=== PATIENT | female | born 1995 | race Caucasian/White ===

== ENCOUNTER 2017-02-22 10:38 | Emergency (ER) | payer MEDICAID, OTHER ==
[2017-02-22 11:37] LABS: RAPID STREP SCREEN REAGENT QC YELLOW (YELLOW)
[2017-02-22] MEDS ORDERED: cefTRIAXone 1 GM in SODIUM CHLORIDE 0.9% MINIBAG 100 ML IV STA (11:41)
[2017-02-22] MEDS ORDERED: DEXAMETHASONE 10 MG/ML VIAL PO STA (11:41)
[2017-02-22] MEDS ORDERED: CLINDAMYCIN 600 MG/50 ML 50 ML IV ONE ×2 (11:45→11:50)
[2017-02-22] MEDS ORDERED: CHERRY SYRUP 10 ML UDC PO ONE (11:50)
[2017-02-22] MEDS ORDERED: DEXAMETHASONE 10 MG/ML VIAL ONE (11:50)
[2017-02-22] MEDS: SODIUM CHLORIDE 0.9% 2,000 ML IV ONE ×2 (11:51→13:27)
[2017-02-22] MEDS ORDERED: ACETAMINOPHEN 1,000 MG/100 ML 100 ML IV ONE (11:58)
[2017-02-22] MEDS ORDERED: ACETAMINOPHEN 1,000 MG/100 ML 100 ML IV STA (11:58)
--- NOTE | 2017-02-22 14:42 | ED Physician Documentation ---
History of Present Illness - Stated complaint Stated Complaint: THROAT PX,SWELLING - Chief complaint Chief Complaint: Heent - Additonal information Additional information: hx from pt 2nd trimester preg 21 f to ER with sore throat and swelling on L side cant swallow no preg concerns, feeling baby move Review of Systems Constitutional: denies: Fever Throat: reports: Sore throat Respiratory: denies: Cough GI: denies: Abdominal Pain : reports: Now EGA PD PAST MEDICAL HISTORY - Past Medical History Past Medical History: Yes Respiratory: Asthma Musculoskeletal: Chronic back pain - Present Medications Home Medications: Ambulatory Orders Medication Instructions Recorded Confirmed Clindamycin [Cleocin] 300 mg PO Q6H 7 Days 02/22/17 - Allergies Allergies/Adverse Reactions: Allergies Allergy/AdvReac Type Severity Reaction Status Date / Time amoxicillin [Amoxicillin] Allergy Severe anaphylaxis Verified 02/22/17 10:51 peanut Allergy Severe anaphylaxis Verified 02/22/17 10:51 - Social History Does the pt smoke?: No Smoking Status: Never smoker Does the pt drink ETOH?: No Does the pt have substance abuse?: No PD ED PE NORMAL - Vitals Vital signs reviewed: Yes - HEENT HEENT: Moist mucous membranes. 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 no trismus, mod swellign and deviation, no clear fluctuant area to access for drainage) - Cardiac Cardiac: RRR - Respiratory Respiratory: No respiratory distress, Clear bilaterally - Derm Derm: Normal color Results - Vitals Vitals: Vital Signs - 24 hr 02/22/17 02/22/17 02/22/17 10:48 13:29 14:53 Temperature 37.2 C 37.6 C H Heart Rate 125 H 117 H 122 H Respiratory 16 22 18 Rate Blood Pressure 133/88 H 109/47 L 115/57 L O2 Saturation 97 99 115 H Oxygen O2 Source Room air - Labs Labs: Laboratory Tests 02/22/17 10:57 Group A Strep Rapid Negative PD MEDICAL DECISION MAKING - ED course ED course: txed with IV NS 2 L, single dose of decadron (safe after 1st trimester) and clinda 2/2 anaphylaxis to penicillins which is Cat B pt improved and tolerating PO now, feels better, nbut HR still 120, will have her return for a recheck tomororow Departure - Departure Disposition: 01 Home, Self Care Clinical Impression: Peritonsillar abscess Condition: Good Instructions: ED Peritonsillar Abscess Follow-Up: Mimi Forde LMW [Physician No Access] - Prescriptions: Clindamycin [Cleocin] 300 mg PO Q6H 7 Days Comments: The swelling is much better after the medications in the ER The symptoms should continue to improve over the next 48 hr. Take the clindamycin antibiotic as directed (it is category B and safe in but you can check with your direct service worker as well if you like). I recommend you eat some yogurt with cultures every day to prevent GI upset from the antibiotic Tylenol as needed for the pain Drink plenty of fluids Please come back to the ER about 8 AM tomorrow for a recheck Return sooner if worse
[2017-02-22 14:54] VITALS: BP 115/57
== END 2017-02-22 15:02 | disposition home or self-care (01) ==
LOC: ED 10:38
DX: O99.512 Diseases of the respiratory system complicating pregnancy, second trimester (principal); J36 Peritonsillar abscess; Z3A.00 Weeks of gestation of pregnancy not specified; Z88.0 Allergy status to penicillin
CPT/HCPCS: 87070; 87430; 96374; 99283; 99284; A9270; J0131

== ENCOUNTER 2017-02-23 09:41 | Emergency (ER) | payer MEDICAID ==
--- NOTE | 2017-02-23 12:29 | ED Physician Documentation ---
PD HPI CHEST PAIN - Stated complaint Stated Complaint: SORE THROAT - Chief complaint Chief Complaint: Heent - History obtained from History obtained from: Patient - History of Present Illness Timing - onset: Other (Seen here yesterday for peritonsillar abscess which at the time did not require incision and drainage. She returns as recommended for a scheduled recheck. Overall her throat pain is better, but after leaving yesterday she developed sharp and burning central chest pain that is worse with deep breathing and with any motion or exertion as well as some shortness of breath. She denies pedal edema, calf pain, history of DVT or PE. No significant cough.) Review of Systems Constitutional: reports: Fatigue. denies: Fever, Chills Nose: denies: Rhinorrhea / runny nose Throat: reports: Sore throat Cardiac: reports: Chest pain / pressure. denies: Palpitations Respiratory: reports: Dyspnea. denies: Cough GI: denies: Abdominal Pain, Nausea PD PAST MEDICAL HISTORY - Past Medical History Past Medical History: Yes Respiratory: Asthma Musculoskeletal: Chronic back pain - Past Surgical History Past Surgical History: Yes - Present Medications Home Medications: Ambulatory Orders Medication Instructions Recorded Confirmed Clindamycin [Cleocin] 300 mg PO Q6H 7 Days 02/22/17 02/23/17 - Allergies Allergies/Adverse Reactions: Allergies Allergy/AdvReac Type Severity Reaction Status Date / Time amoxicillin [Amoxicillin] Allergy Severe anaphylaxis Verified 02/22/17 10:51 peanut Allergy Severe anaphylaxis Verified 02/22/17 10:51 - Social History Does the pt smoke?: No Smoking Status: Never smoker Does the pt drink ETOH?: No Does the pt have substance abuse?: No - Immunizations Immunizations are current?: Yes - POLST Patient has POLST: No PD ED PE NORMAL - Vitals Vital signs reviewed: Yes - General General: Alert and oriented X 3, No acute distress - HEENT HEENT: PERRL, EOMI, Other - Neck Neck: Supple, no meningeal sign, Other (Left-sided tonsillar swelling without overt peritonsillar abscess. She does have left-sided reactive adenopathy,) - Cardiac Cardiac: RRR, No murmur - Respiratory Respiratory: No respiratory distress, Clear bilaterally - Abdomen Abdomen: Soft, Non tender - Extremities Extremities: No edema, No calf tenderness / cord - Neuro Neuro: Alert and oriented X 3, Normal speech Results - Vitals Vitals: Vital Signs - 24 hr 02/23/17 02/23/17 09:48 14:51 Temperature 36.8 C 37.7 C H Heart Rate 129 H 121 H Respiratory 22 20 Rate Blood Pressure 123/72 107/71 O2 Saturation 100 100 Oxygen O2 Source Room air - EKG (time done) 1311 Rate: Rate (enter#) (111) Rhythm: Sinus tachycardia [place]: Normal Intervals: Normal DC QRS: Normal Ischemia: Normal ST segments Computer interpretation: Agree with computer - Labs Labs: Laboratory Tests 02/23/17 02/23/17 02/23/17 13:33 13:33 13:33 WBC 10.2 RBC 3.77 L Hgb 11.8 L Hct 33.7 L MCV 89.4 MCH 31.3 H MCHC 35.0 RDW 13.5 Plt Count 158 MPV 8.6 Neut # 8.5 H Lymph # 1.1 L [place] # 0.5 Eos # 0.0 Baso # 0.0 Absolute Nucleated RBC 0.00 Nucleated RBCs 0.0 D-Dimer 507.0 H Sodium 137 Potassium 3.3 L Chloride 104 Carbon Dioxide 23 Anion Gap 10.0 BUN 7 Creatinine 0.5 Estimated GFR (MDRD) 154 Glucose 94 Calcium 8.4 L Total Bilirubin 0.3 AST 17 ALT 13 Alkaline Phosphatase 57 Total Protein 6.6 L Albumin 3.2 Globulin 3.4 Albumin/Globulin Ratio 0.9 L Lipase 17 L - Rads (name of study) cxr Radiology: EMP read contemporaneously (normal) CTPA Radiology: EMP read contemporaneously (negative) PD MEDICAL DECISION MAKING - ED course ED course: 21-year-old woman who is presents for reevaluation of improving peritonsillar abscess without clinical need for I and D at this point, but now with chest pain in . This could be reactive but at the same time is concerning for potential diagnosis such as PE et cetera. She refused workup of this at this juncture but plans to return in a few hours at a more convenient time. The patient decided to leave AGAINST MEDICAL ADVICE. A discussion of the suspected diagnosis, chest pain with extensive differential, was had with the patient. Also the risks of leaving AGAINST MEDICAL ADVICE which include but are not limited to of the patient's or her fetus, disability were discussed with the patient. She is of sound mind and still wants to leave against medical advice. However at the end of that discussion she decided to stay for a more thorough workup as outlined above. Her d-dimer was positive, we had a long discussion about CT angiography in the setting of and we discussed the pros and cons including the risk of radiation which was small for the same time the risk of missed pulmonary embolism. After discussion she verbally consented to the CT. This was negative for PE. Departure - Departure Disposition: 01 Home, Self Care Clinical Impression: Peritonsillar abscess Chest pain Qualifiers: Chest pain type: unspecified Qualified Code(s): R07.9 - Chest pain, unspecified Condition: Good Record reviewed to determine appropriate education?: Yes Instructions: ED Chest Pain Pleurisy Comments: Return immediately if worse or if new symptoms develop. Call your new doctor on Saturday for an appointment. Discharge Date/Time: 02/23/17 16:52
--- NOTE | 2017-02-23 13:11 | XRAY Preliminary Report ---
Exam: XR Chest 2 View PA/LAT IMPRESSION: Normal 2-view chest radiography. [facility] SITE ID: [id number]
--- NOTE | 2017-02-23 13:13 | XRAY Report ---
EXAM: CHEST RADIOGRAPHY EXAM DATE: 02/23/2017 12:59 PM. CLINICAL HISTORY: Chest pain, shield abd. COMPARISON: None. TECHNIQUE: 2 views. FINDINGS: Lungs/Pleura: No focal opacities evident. No pleural effusion. No pneumothorax. Normal volumes. Mediastinum: Heart and mediastinal contours are unremarkable. Other: None. IMPRESSION: Normal 2-view chest radiography. [facility] Referring Provider Line: [phone] SITE ID: [id number]
[2017-02-23 13:38] LABS: BASOPHILS % (AUTO) 0.2 %; EOSINOPHILS % (AUTO) 0.4 %; HCT - HEMATOCRIT 33.7 % (37.0-47.0); HGB - HEMOGLOBIN 11.8 g/dL (12.0-16.0); LYMPHOCYTES # (AUTO) 1.1 10^3/uL (1.5-3.5); LYMPHOCYTES % (AUTO) 10.4 %; MEAN CORPUSCULAR HEMOGLOBIN 31.3 pg (27.0-31.0); MEAN CORPUSCULAR VOLUME 89.4 fL (81.0-99.0); MEAN PLATELET VOLUME 8.6 fL (7.9-10.8); MONOCYTES # (AUTO) 0.5 10^3/uL (0.0-1.0); MONOCYTES % (AUTO) 5.2 %; NEUTROPHILS # (AUTO) 8.5 10^3/uL (1.5-6.6); NEUTROPHILS % (AUTO) 83.8 %; RED BLOOD COUNT 3.77 10^6/uL (4.20-5.40); RED CELL DISTRIBUTION WIDTH 13.5 % (12.0-15.0); UNCORRECTED WHITE BLOOD COUNT 10.2 x10^3/uL; WHITE BLOOD COUNT 10.2 x10^3/uL (4.8-10.8)
[2017-02-23 13:51] LABS: ALBUMIN/GLOBULIN RATIO 0.9 (1.0-2.2); BILIRUBIN,TOTAL 0.3 mg/dL (0.2-1.0); CALCIUM 8.4 mg/dL (8.5-10.3); CREATININE 0.5 mg/dL (0.4-1.0); POTASSIUM 3.3 mmol/L (3.5-5.0); TOTAL PROTEIN 6.6 g/dL (6.7-8.2)
[2017-02-23] MEDS ORDERED: POTASSIUM CHLORIDE 20 MEQ TABLET PO STA (14:14)
[2017-02-23] MEDS ORDERED: POTASSIUM CHLORIDE 20 MEQ TABLET PO ONE (14:22)
[2017-02-23 14:52] VITALS: BP 107/71
[2017-02-23] MEDS ORDERED: IOPAMIDOL-300 100 ML VIAL IVP ONE (15:18)
[2017-02-23] MEDS ORDERED: IBUPROFEN 600 MG TABLET PO ONE (15:44)
--- NOTE | 2017-02-23 16:30 | CT Preliminary Report ---
Exam: CT Chest Angio (PE) IMPRESSION: No pulmonary embolus or other acute process identified to explain chest pain. [facility] SITE ID: [id number]
--- NOTE | 2017-02-23 16:32 | CT Report ---
EXAM: CT ANGIOGRAM CHEST EXAM DATE: 02/23/2017 03:21 PM. CLINICAL HISTORY: , chest pain. COMPARISON: Chest radiograph, same day. TECHNIQUE: Routine helical imaging was performed through the chest in the pulmonary arterial phase. I V Contrast: 100 mL Isovue-300. Reconstructions: Coronal 3-D MIP reconstructions.Sagittal and coronal. In accordance with CT protocol optimization, one or more of the following dose reduction techniques w ere utilized for this exam: automated exposure control, adjustment of mA and/or KV based on patient s ize, or use of iterative reconstructive technique. FINDINGS: Pulmonary Arteries: Diagnostic quality: Adequate through the subsegmental arteries. No pulmonary embolus is seen. Lungs/Pleura: Minimal bibasilar atelectasis. No focal consolidation, pleural effusion, or pneumothora x. Mediastinum: Heart size is normal. No pericardial effusion. No aortic aneurysm or dissection. No odell opathy. Upper Abdomen: Unremarkable. Bones: Unremarkable. IMPRESSION: No pulmonary embolus or other acute process identified to explain chest pain. [facility] Referring Provider Line: [phone] SITE ID: [id number]
--- NOTE | 2017-02-23 19:59 | ED Physician Documentation ---
ED Addendum - Addendum Addendum: 02/23/17 19:58 pt returned as requested for BEADER recheck - chart accessed for follow up and educational purposes
== END 2017-02-23 16:52 | disposition home or self-care (01) ==
LOC: ED 09:41
DX: J36 Peritonsillar abscess (principal); R07.9 Chest pain, unspecified; J45.909 Unspecified asthma, uncomplicated
CPT/HCPCS: 36415; 71020; 71275; 80053; 83690; 85025; 85379; 93005; 93010; 99283; 99284; A9270; Q9967

== ENCOUNTER 2021-05-03 19:39 | Outpatient (CLI) | payer MEDICAID, OTHER | END 2021-05-03 19:40 | disposition EMS.NT | LOC: EMS 19:39 | DX: S00.11XA Contusion of right eyelid and periocular area, initial encounter (principal); M79.644 Pain in right finger(s); Y04.2XXA Assault by strike against or bumped into by another person, initial encounter ==

== ENCOUNTER 2022-01-18 18:50 | Outpatient (CLI) | payer MEDICAID ==
--- NOTE | 2022-01-19 11:06 | Ultrasound Report ---
PROCEDURE: OB First Trimester INDICATIONS: PREG ?LMP OUTSIDE/PRIOR DATING DATA: Last menstrual period (LMP): None. LMP-based estimated date of delivery (BRIANNA): Not applicable. First dating scan (date and location): 01/18/2022. Estimated date of delivery (BRIANNA) from first dating scan: 07/24/2022. The below data below was generated using the ultrasound generated BRIANNA of 07/24/2022 TECHNIQUE: Real-time scanning was performed of the fetus and maternal pelvic organs, with image documentation. COMPARISON: None. FINDINGS: Embryo: Mean sac diameter 7.2 cm. Nellie-rump length 7.0 cm. Estimated gestational age 13 weeks 2 day s. Heart rate: 155 bpm Measurement variability in dating: +/- 4 weeks by LMP, +/- 7 days by mean sac diameter (use before 6 weeks gestation if crown-rump length not able to be measured), +/- 5 days by crown-rump length (6-12 weeks gestation). Maternal organs: Ovaries normal. Left corpus luteum cyst noted. IMPRESSION: Single live intrauterine gestation, estimated age 13 weeks 2 days. Reviewed by: Jay Che MD on 01/19/2022 11:05 AM PDT Approved by: Jay Che MD on 01/19/2022 11:05 AM PDT Station ID: [id number]
== END 2022-01-18 18:51 | disposition home or self-care (01) ==
LOC: DI 18:50
PROVIDERS: ATTEND Midwife
DX: Z34.91 Encounter for supervision of normal pregnancy, unspecified, first trimester (principal); Z3A.13 13 weeks gestation of pregnancy

== ENCOUNTER 2022-03-15 18:18 | Outpatient (CLI) | payer MEDICAID ==
--- NOTE | 2022-03-16 17:04 | Ultrasound Report ---
PROCEDURE: OB Detailed Eval INDICATIONS: ANATOMIC SCAN OUTSIDE/PRIOR DATING DATA: Last menstrual period (LMP): Unknown. LMP-based estimated date of delivery (BRIANNA): Unknown. First dating scan (date and location): 01/10/2022. Estimated date of delivery (BRIANNA) from first dating scan: 07/24/2022. The below data below was generated using the ultrasound BRIANNA of 07/24/2022 TECHNIQUE: Real-time scanning was performed of the fetus, with image documentation and biometric measurements. COMPARISON: 03/15/2022 FINDINGS: General: A single living intrauterine gestation is present. Presentation: Vertex Placenta: Placental position is anterior, without previa. Amniotic fluid index: 10.1 cm, lower limits of normal for gestational age. Largest pocket 3.1 cm heart rate: 157 beats per minute. Maternal cervical canal: 3.5 cm long; normal length is 2.5 cm or more. biometrics: Biparietal diameter: 5.0 cm 21 weeks 1 day Head circumference: 19.3 cm 21 weeks 2 days Abdominal circumference: 16.0 cm 21 weeks 1 day Femur length: 3.6 cm 21 weeks 2 days Estimated gestational age from initial scan: not applicable. Composite gestational age from present scan: 21 weeks 2 days Estimated weight and percentile: 407 g 40th percentile Measurement variability in biometric dating: +/- 10 days from 12-20 weeks gestation, +/- 2 weeks from 20-30 weeks gestation, +/- 3 weeks at 30 weeks gestation or later. Anatomic survey: Neuro: Ventricles are normal at less than 10 mm. Cisterna magna is normal at 3-11 mm. Cerebellum i s normal in size and morphology. Nuchal skin fold: Normal at less than 6 mm between 14 and 20 weeks gestational age. Face: Nose and lips, facial profile are normal. Spine: No evidence for spina bifida. Heart: 4-chambered heart is present, with normal ventricular outflow tracts. Diaphragm: Diaphragm is intact. Stomach: Left-sided stomach is present. Kidneys: No hydronephrosis. Normal is less than 5 mm in 2nd trimester, less than 7 mm in 3rd trimester. Cord: 3 vessel cord has orthotopic insertion. Bladder: Normal in size. Extremities: All 4 extremities are visualized. IMPRESSION: Single live intrauterine with ultrasound gestational age today of 21 weeks 2 days. It is noted JERRY is at the lower limits of normal measuring 10.1 cm. Short interval imaging follow-up is recommended. Reviewed by: Linda Bryson MD on 03/16/2022 5:02 PM PDT Approved by: Linda Bryson MD on 03/16/2022 5:02 PM PDT Station ID: [id number]
== END 2022-03-15 18:19 | disposition home or self-care (01) ==
LOC: DI 18:18
PROVIDERS: ATTEND Midwife
DX: Z36.9 Encounter for antenatal screening, unspecified (principal)

== ENCOUNTER 2022-04-12 16:51 | Outpatient (CLI) | payer MEDICAID ==
--- NOTE | 2022-04-12 18:08 | Ultrasound Report ---
PROCEDURE: OB Limited INDICATIONS: LOW JERRY OUTSIDE/PRIOR DATING DATA: Last menstrual period (LMP): Unknown. LMP-based estimated date of delivery (BRIANNA): Unknown. First dating scan (date and location): 01/18/2022. Estimated date of delivery (BRIANNA) from first dating scan: 07/24/2022. The below data below was generated using the study generated BRIANNA of 07/24/2022 TECHNIQUE: Real-time scanning was performed of the fetus, with image documentation. Endovaginal scanning: Not indicated COMPARISON: 01/18/2022, 03/15/2022. FINDINGS: A single living intrauterine gestation is present. Presentation: Vertex Placenta: Placental position is anterior, without previa. Amniotic fluid index: 12.8 cm, normal for gestational age and is at 26.4%. heart rate: 150 beats per minutes. Maternal cervical canal : cervix is closed and is visually normal in length. Estimated gestational age from initial scan: 23 weeks, 5 days. IMPRESSION: 1. Single live intrauterine gestation with fetus in vertex presentation. heart rate is 150 bpm. 2. JERRY equals 12.8 cm and is at 26.4%. Uterus pocket is 4 cm in size. Reviewed by: Tomi Post MD on 04/12/2022 6:07 PM PDT Approved by: Tomi Post MD on 04/12/2022 6:07 PM PDT Station ID: [id number]
== END 2022-04-12 16:52 | disposition home or self-care (01) ==
LOC: DI 16:51
PROVIDERS: ATTEND Midwife
DX: O41.02X0 Oligohydramnios, second trimester, not applicable or unspecified (principal); Z3A.23 23 weeks gestation of pregnancy